=== PATIENT | male | born 1995 | race African-American/Black ===

== ENCOUNTER 2017-11-15 02:51 | Emergency (ER) | payer OTHER, MEDICAID ==
[~2017-11-15] VITALS: Ht 180.3 cm; Wt 90.7 kg
[2017-11-15 03:00] VITALS: BP 122/70
[2017-11-15] MEDS ORDERED: TESSALON PERLE100 MG ORAL (03:35)
[2017-11-15] MEDS ORDERED: ZITHROMAX TRI-500 MG ORAL (03:35)
--- NOTE | 2017-11-15 03:38 | Emergency Room Report ---
History of Present Illness General Chief Complaint: Upper Respiratory Illness Source: Patient Present Illness HPI 22-year-old male p/w cough for 2-3 months. Pt states cough is productive, with greenish sputum, patient states that when he coughs hard sometimes he sees specks of blood. Denies fever chills sob. Mild chest pain only when he coughs. Denies runny nose or myalgias. No sick contacts or recent travel. Patient does not smoke. Allergies: Coded Allergies: No Known Allergies (Unverified , 11/15/17) Patient History Past Medical History: see triage record Past Surgical History: none Pertinent Family History: none Reviewed Nursing Documentation: PMH: Agreed, PSxH: Agreed Nursing Documentation-PMH Past Medical History: No Stated History Review of Systems All Other Systems: negative except mentioned in HPI Physical Exam Vital Signs Date Time Temp Pulse Resp B/P (MAP) Pulse Ox O2 Delivery O2 Flow Rate FiO2 11/15/17 02:53 97.8 74 18 122/70 97 Room Air 97.9 Sp02 EP Interpretation: reviewed, normal General Appearance: normal inspection, well appearing, no apparent distress, alert, GCS 15, non-toxic Head: normocephalic, atraumatic Eyes: bilateral eye normal inspection, bilateral eye PERRL, bilateral eye EOMI ENT: normal ENT inspection, normal pharynx, normal voice, moist mucus membranes Neck: normal inspection, full range of motion, supple Respiratory: normal inspection, lungs clear, normal breath sounds, no respiratory distress, no retraction, no wheezing, speaking full sentences, chest symmetrical Cardiovascular #1: normal inspection, regular rate, rhythm, no edema, normal capillary refill Cardiovascular #2: 2+ radial (R), 2+ radial (L) Gastrointestinal: normal inspection, non tender, soft, non-distended, no guarding Genitourinary: no CVA tenderness Musculoskeletal: normal inspection, back normal, normal range of motion, non- tender Neurologic: normal inspection, alert, oriented x3, responsive, motor strength/ tone normal, sensory intact, normal gait, speech normal Psychiatric: normal inspection, judgement/insight normal, memory normal Skin: normal inspection, normal color, no rash, warm/dry, well hydrated, normal turgor Medical Decision Making Diagnostic Impression: Primary Impression: Upper respiratory infection ER Course 22-year-old male p/w cough for 2 months DDX: Chronic bronchitis versus Viral URI vs. pneumonia Plan: CXR, antibiotics ER course: Patient remains nontoxic, not in resp distress. CXR obtained - no acute infiltrate Disposition: Patient is to be discharged home with a prescription of Tessalon Perles and a Z- Dorothy Strict precautions discussed with patient on when to return to the emergency room including hemoptysis, high fevers, chills, SOB, chest pain which may indicate severe illness. Patient is to follow up with their primary care doctor within 5 days. Patient agrees with plan. Please note that this Emergency Department Report was dictated using [employer]season[employer] clerk technology software, occasionally this can lead to erroneous entry secondary to interpretation by the dictation equipment Chest X-ray CXR: Ordered: Yes 1 view Indication: Cough EP interpretation: Yes Interpretation: No consolidation, no effusion, no PTX, no acute cardiopulmonary disease Impression: No acute disease Electronically signed by Kojo Amaya MD Last Vital Signs Date Time Temp Pulse Resp B/P (MAP) Pulse Ox O2 Delivery O2 Flow Rate FiO2 11/15/17 02:53 97.8 74 18 122/70 97 Room Air 97.9 Disposition: HOME, SELF-CARE Condition: Stable Scripts Azithromycin (ZITHROMAX TRI-DOROTHY) 500 Mg Tablet 500 MG ORAL DAILY, #1 PACK 0 Refills Prov: Kojo Amaya M.D. 11/15/17 Benzonatate* (TESSALON PERLE*) 100 Mg Capsule 100 MG ORAL THREE TIMES A DAY for 7 Days, #21 PERLE 0 Refills Prov: Kojo Amaya M.D. 11/15/17 Patient Instructions: Upper Respiratory Infection, Adult Additional Instructions: PLEASE SEE YOUR DOCTOR IN 1 WEEK WITHOUT FAIL Kojo Amaya M.D. Nov 15, 2017 03:38
[2017-11-15 03:42] VITALS: BP 122/70
--- NOTE | 2017-11-15 10:22 | Diagnostic Imaging Report ---
Indication: Cough Technique: One view of the chest Comparison: none Findings: Lungs and pleural spaces are clear. Heart size is normal Impression: No acute process
== END 2017-11-15 03:44 | disposition home or self-care (01) ==
LOC: EMR 03:35
DX: J06.9 Acute upper respiratory infection, unspecified (principal)
CPT/HCPCS: 71045; 99283

== ENCOUNTER 2018-04-09 00:09 | Emergency (ER) | payer MEDICAID, OTHER ==
[~2018-04-09] VITALS: Ht 182.9 cm; Wt 95.3 kg
[~2018-04-09 00:09] MED LIST: TESSALON PERLE100 MG ORAL; ZITHROMAX TRI-500 MG ORAL
[2018-04-09] MEDS ORDERED: NKM (00:23)
[2018-04-09 00:25] VITALS: BP 132/70
[2018-04-09] MEDS ORDERED: Lidocaine 1% MPF 10mg/ml 5ml INJ ONE (00:45)
[2018-04-09 01:21] LABS: APPEARANCE,URINE CLEAR; BILIRUBIN, URINE NEGATIVE (NEGATIVE); GLUCOSE, URINE (UA) NEGATIVE (NEGATIVE); KETONES,URINE NEGATIVE (NEGATIVE); LEUKOCYTE ESTERASE ,URINE NEGATIVE (NEGATIVE); NITRITE,URINE NEGATIVE (NEGATIVE); PH,URINE 6 (4.5-8.0); PROTEIN,URINE NEGATIVE (NEGATIVE); UROBILINOGEN,URINE 1 MG/DL (0.0-1.0)
[2018-04-09 01:22] LABS: COLOR,URINE YELLOW
[2018-04-09 02:53] VITALS: BP 127/68
--- NOTE | 2018-04-09 03:03 | Emergency Room Report ---
History of Present Illness General Chief Complaint: Male Urogenital Problems Source: Patient Present Illness HPI Patient presents stating his girlfriend says he gave her an STD. He has had other partners with unprotected sex. He denies dysuria or discharge. He does have L testicular pain for 3 days. No fevers, lymph node swelling, rashes. Initially reported [facility] 05/03, then states much less to me - 01/01. He has bumps on his penis that have been present for many years. They are not painful. Treated for STD in the past. Denies herpes. Denies other somatic complaints. Allergies: Coded Allergies: No Known Allergies (Unverified , 11/15/17) Patient History Past Medical History: see triage record Social History: Reports: smoking Social History Narrative with girlfriend Reviewed Nursing Documentation: PMH: Agreed; PSxH: Agreed Nursing Documentation-PMH Past Medical History: No Stated History Review of Systems All Other Systems: negative except mentioned in HPI Physical Exam Vital Signs Date Time Temp Pulse Resp B/P (MAP) Pulse Ox O2 Delivery O2 Flow Rate FiO2 04/09/18 00:18 98.4 68 16 141/71 97 Room Air 98.4 Sp02 EP Interpretation: reviewed, normal General Appearance: well appearing, no apparent distress, GCS 15 Head: normocephalic, atraumatic Eyes: bilateral eye normal inspection, bilateral eye PERRL ENT: hearing grossly normal, normal voice, moist mucus membranes Neck: full range of motion, supple Respiratory: no respiratory distress, speaking full sentences Cardiovascular #1: regular rate, rhythm Cardiovascular #2: 2+ radial (R) Gastrointestinal: normal inspection Genitourinary: other - alleged L scrotal tenderness, no swelling or erythema, has pedunculated lesions side of glans and shaft Musculoskeletal: no calf tenderness Neurologic: alert, normal gait, grossly normal Psychiatric: mood/affect normal Skin: normal inspection Medical Decision Making Diagnostic Impression: Primary Impression: Testicular pain, left Additional Impression: Possible venerial warts ER Course Patient with possible STD with testicular pain. DDx; epididymitis, torsion, contusion, STD amongst others. Exam and timing excludes torsion. Exam also suggestive of genital warts. Evaluation with UA/labs. As suspect STD, will treat with rocephin and doxy. Discussed possibility of venereal warts with patient and need for follow up. Patient and girlfriend insist on discussion together. He is upset that discussion with girlfriend led to her crying alleging MD causing this. Patient stable for outpatient observation and treatment. Laboratory Tests Test 04/09/18 00:20 Urine Color Yellow Urine Appearance Clear Urine pH 6 (4.5-8.0) Urine Specific [place] 1.025 (1.005-1.035) Urine Protein Negative (NEGATIVE) Urine Glucose (UA) Negative (NEGATIVE) Urine Ketones Negative (NEGATIVE) Urine Occult Blood Negative (NEGATIVE) Urine Nitrite Negative (NEGATIVE) Urine Bilirubin Negative (NEGATIVE) Urine Urobilinogen 1 MG/DL (0.0-1.0) H Urine Leukocyte Esterase Negative (NEGATIVE) Chlamydia trachomatis RNA Pending Neisseria gonorrhoeae RNA Pending Last Vital Signs Date Time Temp Pulse Resp B/P (MAP) Pulse Ox O2 Delivery O2 Flow Rate FiO2 04/09/18 04:00 98.2 62 16 127/68 98 Room Air 98.2 Status: improved Disposition: HOME, SELF-CARE Condition: Improved Scripts Doxycycline Monohydrate* (DOXYCYCLINE MONOHYDRATE*) 100 Mg Capsule 100 MG ORAL Q12H, #14 CAP 0 Refills Prov: Cedrick Cosme M.D. 04/09/18 Referrals: [facility] (PCP) Cedrick Cosme M.D. Apr 09, 2018 03:03
[2018-04-09] MEDS ORDERED: DOXYCYCLINE MO100 MG ORAL (03:05)
[2018-04-09 04:00] VITALS: BP 127/68
== END 2018-04-09 04:00 | disposition home or self-care (01) ==
LOC: EMR 00:37
DX: N50.812 Left testicular pain (principal); F17.200 Nicotine dependence, unspecified, uncomplicated
CPT/HCPCS: 81003; 87491; 87590; 96372; 99283; J0696